=== PATIENT | male | born 1995 | race Caucasian/White ===

== ENCOUNTER 2023-09-08 15:22 | Emergency (ER) | payer BC, SELFPAY ==
[2023-09-08 15:25] VITALS: BP 183/113
[2023-09-08 15:43] LABS: % Basophils 0.4 % (0-2); % Eosinophils 0.4 % (0-6); % Immature Granulocytes 0.2 % (0-0.5); % Lymphocytes 35.5 % (20.5-51.1); % Monocytes 6.6 % (1.7-9.3); % Neutrophils 56.9 % (42.2-75.2); Absolute Lymphocytes 1.7 10^3/uL (1.2-3.4); Absolute Monocytes 0.3 10^3/uL (0.1-0.6); Absolute Neutrophils 2.7 10^3/uL (1.4-6.5); Hematocrit 39.2 % (39.0-52.0); Hemoglobin 14.4 g/dL (13.0-18.0); Mean Corp Hgb Conc. 36.7 g/dL (33.0-37.0); Mean Corpuscular Hgb 31.6 pg (27.0-31.0); Mean Corpuscular Volume 86.2 fL (80.0-94.0); Mean Platelet Volume 10.4 fL (7.4-10.4); Nucleated Red Blood Cells % 0 % (-); Platelet Count 183 10^3/uL (130-400); Red Blood Cell Count 4.55 10^6/uL (4.70-6.10); White Blood Cell Count 4.7 10^3/uL (4.8-10.8)
[2023-09-08 15:57] LABS: ALT (SGPT) 32 U/L (0-50); AST (SGOT) 29 U/L (17-59); Alkaline Phosphatase 65 U/L (38-126); Blood Urea Nitrogen 13 mg/dl (9-20); Carbon Dioxide 27 mmol/L (22-30); Chloride 102 mmol/L (98-107); Glucose 156 mg/dl (70-99); Potassium 3.5 mmol/L (3.5-5.1); Sodium 140 mmol/L (135-145); Total Bilirubin 2.7 mg/dl (0.2-1.3); Total Protein 7.8 g/dl (6.3-8.2); eGFR > 60.00
--- NOTE | 2023-09-08 18:02 | ED.GENMED ---
History of Present Illness
General
Chief Complaint: Blood Pressure Problem
Time Seen by Provider: 09/08/23 17:26
Travel History
Have you had any contact with someone who has COVID-19?: No
Do you have any symptoms of coronavirus? Fever > 100 degrees, chills, cough, shortness of breath, sore throat, loss of taste or smell, muscle aches, or headache?: No
History of Present Illness
History of Present Illness:
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 He presented to urgent care requesting a sports
physical prior to initiating horseback riding, he noted his blood pressure exceeded 180 systolic follow-up EKG was abnormal. He denies any complaints at this time. Denies any chest pain. He does note that he has a history of elevated blood
pressure readings while at the doctor's office.
Review of Systems
Review of Systems
Allergies reviewed?: Yes
All Other Systems: ROS reviewed and negative except as documented in HPI and ROS
Phy Exam
Physical Exam
Physical Exam:
GEN: Well appearing, NAD, WDWN
HEENT: Oral mucosa moist, no scleral icterus
Cardiac: Regular rate and rhythm, no murmur
Lung: No respiratory distress, no tachypnea
MSK: No gross deformity or injuries
Skin: Good color, no pallor or jaundice, no rashes
Neuro: AO x3, moves all extremities freely
Psych: Calm, cooperative
Course
Orders/Labs/Results
Orders:
Orders
09/08/23 15:28
Electrocardiogram (*1) Urgent
Reason for Study: Abnormal EKG
09/08/23 15:29
EKG- Treatment ONCE
09/08/23 15:36
CMP [Comprehensive Metabolic Panel] Urgent
Complete Blood Count/With Diff Urgent
Abnormal Lab Results
09/08/23
15:36
WBC 4.7 L 10^3/uL
(4.8-10.8)
RBC 4.55 L 10^6/uL
(4.70-6.10)
MCH 31.6 H pg
(27.0-31.0)
Glucose 156 H mg/dl
(70-99)
Total Bilirubin 2.7 H mg/dl
(0.2-1.3)
09/08/23 15:36
09/08/23 15:36
Vital Signs
Initial and Last Documented VS:
Initial Vital Signs
Temp Pulse Resp BP Pulse Ox
97.5 F 89 16 183/113 99
09/08/23 15:25 09/08/23 15:25 09/08/23 15:25 09/08/23 15:25 09/08/23 15:25
Last Documented Vital Signs
Temp Pulse Resp BP Pulse Ox
97.5 F 89 16 153/99 99
09/08/23 15:25 09/08/23 15:25 09/08/23 15:25 09/08/23 18:09 09/08/23 15:25
MDM/Problems Addressed
MDM/Problems Addressed:
Patient is asymptomatic at this time. Given his abnormal EKG I suspect his hypertension has been more chronic that he lives alone. He is willing to start antihypertensive therapy, will initiate amlodipine at this time. Provided with 1 month
supply. Encouraged to follow-up with primary care physician to discuss potential benefit of an echocardiogram as an outpatient
Comment
Comment:
EKG independently interpreted by me shows sinus tachycardia at a rate of [address] depressions and inferior ST depressions suspicious for LVH
*Critical Care Note
Total Time (30-74mins, 75-104mins- exclusive of procedures): Not Applicable
ED Attending Note
-
Portions of this chart may have been created with voice recognition software.� Occasional wrong word or��sound alike� substitutions may have occurred due to the inherent limitations of voice recognition software.
Discharge Plan
Departure
Patient Disposition: Home (Routine Discharge)
Date of Disposition: 09/08/23
Time of Disposition: 18:04
Patient with high blood pressure during this ER visit?: No
Discharge Problem:
Hypertension
Instructions: High Blood Pressure (DC)
Prescriptions:
New
amlodipine 2.5 mg tablet
2.5 mg PO DAILY Qty: 30 0RF
Referrals:
Chris Arreaga MD [Family Provider] -
Activity Restrictions/Additional Instructions:
Please follow-up with your primary care physician within the next month to recheck blood pressure. You may also need an outpatient echocardiogram ordered by her primary care physician as well due to the abnormal EKG
Interventions
Interventions:
*ED COVID-19 Vaccine History Last Done: 09/08/23 15:25
*Nursing Disposition Last Done: 09/08/23 18:11
ED- Cardiac Assessment Last Done: 09/08/23 18:09
ED- Neurological Assessment Last Done: 09/08/23 18:09
ED- Pulmonary Assessment Last Done: 09/08/23 18:09
Discharge Date and Time
Discharge Date/Time: 09/08/23 18:11
Print Language: GREENLANDIC
[2023-09-08 18:09] VITALS: BP 153/99
== END 2023-09-08 18:11 | disposition home or self-care (01) ==
LOC: EMR 15:22
PROVIDERS: EMERGENCY PHYSICIAN Student in an Organized Health Care Education/Training Program; FAMILY PHYSICIAN Family Medicine
DX: I10 Essential (primary) hypertension (principal); R94.31 Abnormal electrocardiogram [ECG] [EKG]
CPT/HCPCS: 99283; 80053; 85025; 93005

== ENCOUNTER → 2023-10-16 17:49 | Outpatient (REF) | payer BC, SELFPAY | LOC: RCS 17:49 | PROVIDERS: ATTENDING PHYSICIAN Nurse Practitioner Family; FAMILY PHYSICIAN Family Medicine | DX: I10 Essential (primary) hypertension (principal) | CPT/HCPCS: 93306 ==

== ENCOUNTER 2024-08-07 06:26 | Day surgery (SDC) | payer BC, SELFPAY | END 2024-08-07 14:59 | disposition home or self-care (01) | LOC: GI 06:26 | PROVIDERS: ATTENDING PHYSICIAN Specialist | DX: R12 Heartburn (principal); R14.2 Eructation; K31.89 Other diseases of stomach and duodenum | CPT/HCPCS: 43239; 88305; 88342 ==